=== PATIENT | female | born 1965 | race Caucasian/White ===

== ENCOUNTER → 2021-08-31 | Outpatient (CLI) | payer MEDICARE, OTHER ==
[2021-08-31 13:26] VITALS: BMI 41.6
[2021-08-31 15:44] VITALS: BP 134/84; PULSE 66; TEMP 97.6
--- NOTE | 2021-11-03 12:03 | P.HPBAR ---
Bariatric H&P - History & Physicial H&P Date: 08/31/21 History & Physicial: Visit/CC: lap band Patient initial contact: Initial weight: Initial weight in pounds: Height: 5 ft 6 in Initial BMI: Last weight: Current weight: 117.027 kg Current weight in pounds: 258.00 Current BMI: 41.6 [place] body weight (based on NIH guidelines): 58.967 kg Excess body weight loss: The patient is a 56 year-old F who presents for Bariatric Assessment. Patient presents today for LAP-BAND adjustment. She is requesting a fill of her LAP- BAND. Past Medical History Past Medical History: Diabetes Mellitus, GERD/Reflux, Hypertension, Osteoarthritis (OA) Additional Past Medical History / Comment(s): sciatica, pinched nerve L5/L6 History of Any Multi-Drug Resistant Organisms: None Reported Past Surgical History: Bariatric Surgery, Breast Surgery, Section, Hysterectomy Additional Past Surgical History / Comment(s): lap band, breast reduction Past Anesthesia/Blood Transfusion Reactions: No Reported Reaction Smoking Status: Never smoker Surgical - Exam Vital Signs Temp Pulse BP 97.6 F 66 134/84 08/31/21 13:50 08/31/21 13:50 08/31/21 13:50 - General well developed, well nourished, moderate distress - Eyes PERRL - ENT normal pinna - Respiratory normal expansion - Cardiovascular Rhythm: regular - Abdomen Abdomen: soft, non tender Bariatric Assessment & Plan Plan: The patient's LAP-BAND was adjusted. She had 1 mL added to the band. The patient will follow-up in one month. Bariatric Checklist Checklist: Plan: Checklist: EGD: 1. Hiatal hernia: 2. H. Pylori: HgbA1c: Vitamin D: Smoking: Primary care physician referral: Dr. Mcfadden Psychiatry clearance: Cardiology clearance: Sleep study: Diet journal: VTE risk score: VTE risk level: Rehab needs at discharge:
== END | disposition home or self-care (01) ==
LOC: BARWHC3 12:47
PROVIDERS: ATTEND Surgery
DX: Z48.815 Encounter for surgical aftercare following surgery on the digestive system (principal)
CPT/HCPCS: 99212